=== PATIENT | female | born 2000 | race Two or more races ===

== ENCOUNTER 2020-05-19 21:49 | Emergency (ER) | payer OTHER ==
[2020-05-19] MEDS ORDERED: Sulfamethoxazole/Trimethoprim 800-160 MG Tab PO ONE (21:50)
[2020-05-19] MEDS ORDERED: Ondansetron 4 MG Tab.DIS PO ONE (21:50)
[2020-05-19] MEDS ORDERED: Sodium Chloride 0.9% 10 ML Syringe FLUSH PRN (22:14)
[2020-05-19] MEDS ORDERED: Morphine 2 MG/ML SYRINGE IVPUSH STA (22:14)
[2020-05-19] MEDS ORDERED: Ondansetron 4 MG/2 ML SDV IVPUSH STA (22:14)
[2020-05-19] MEDS ORDERED: Sodium Chloride 0.9% 1,000 ML IV SCH (22:15)
[2020-05-19] MEDS ORDERED: Ketorolac 30 MG/ML SDV IVPUSH STA (22:15)
[2020-05-19] MEDS ORDERED: Iopamidol 755 Mg/ML 100 ML Bottle IV ONE (23:22)
--- NOTE | 2020-05-19 23:24 | EDM.PDOC ---
ED HPI GENERAL MEDICAL PROBLEM - General Chief Complaint: Abdominal Pain Stated Complaint: abd pain Time Seen by Provider: 05/19/20 21:55 Source of Information: Reports: Patient, Family History Limitations: Reports: No Limitations - History of Present Illness INITIAL COMMENTS - FREE TEXT/NARRATIVE: Patient presented to the ED because of abdominal pain over the RLQ and LLQ for 3 days. The pain is sharp,5/10/ with associated nausea,vomiting. No changes in bowel movement or urinary symptoms. lower abd DICKSON Pain Score (Numeric/FACES): 6 - Related Data Allergies Allergy/AdvReac Type Severity Reaction Status Date / Time amoxicillin Allergy Hives Verified 05/19/20 22:20 Home Meds: Home Meds NK [No Known Home Meds] 05/19/20 [History] Past Medical History - Past Health History Medical/Surgical History: Denies Medical/Surgical History Social & Family History - Tobacco Use Tobacco Use Status *Q: Never Tobacco User - Recreational Drug Use Recreational Drug Use: No ED ROS GENERAL - Review of Systems Review Of Systems: See Below Constitutional: Reports: No Symptoms HEENT: Reports: No Symptoms Respiratory: Reports: No Symptoms Cardiovascular: Reports: No Symptoms Endocrine: Reports: No Symptoms GI/Abdominal: Reports: Abdominal Pain, Nausea, Vomiting Musculoskeletal: Reports: No Symptoms Skin: Reports: No Symptoms Neurological: Reports: No Symptoms Psychiatric: Reports: No Symptoms ED EXAM, GI/ABD - Physical Exam Exam: See Below Exam Limited By: No Limitations General Appearance: Alert, No Apparent Distress Ears: Normal External Exam, Normal Canal Nose: Normal Inspection, Normal Mucosa Throat/Mouth: Normal Inspection, Normal Lips, Normal Teeth Head: Atraumatic, Normocephalic Neck: Normal Inspection, Supple, Non-Tender Respiratory/Chest: No Respiratory Distress, Lungs Clear, Normal Breath Sounds, No Accessory Muscle Use, Chest Non-Tender Cardiovascular: Normal Peripheral Pulses, Regular Rate, Rhythm, No Edema, No Gallop, No JVD, No Murmur, No Rub GI/Abdominal Exam: Normal Bowel Sounds, Soft, No Organomegaly, No Distention, No Abnormal Bruit, No Mass, Other (tenderness over the suprapubia area) Back Exam: Normal Inspection, Full Range of Motion Extremities: Normal Inspection, Normal Range of Motion, Non-Tender, No Pedal Edema, Normal Capillary Refill Neurological: Alert, Oriented, Normal Cognition Course - Vital Signs Text/Narrative:: Labd/CT result was reviewed and discussed with patient NS 1 L bolus Zofran 4 mg IV x1 Morphine 2 mg IV x1 Last Recorded V/S: Last Vital Signs Temp 36.5 C 05/20/20 00:20 Pulse 80 05/20/20 00:20 Resp 16 05/20/20 00:20 BP 107/59 L 05/20/20 00:20 Pulse Ox 99 05/20/20 00:20 - Orders/Labs/Meds Orders: Active Orders 24 hr Category Date Time Status Abdomen Pelvis w Cont [CT] Stat Exams 05/19/20 23:21 Taken CULTURE URINE [RM] Stat Lab 05/19/20 22:55 Received Saline Lock Insert [OM.PC] Routine Oth 05/19/20 22:14 Ordered Labs: Laboratory Tests 05/19/20 05/19/20 05/19/20 Range/Units 22:30 22:30 22:30 WBC 11.3 H (3.0-10.3) x10-3/uL RBC 4.97 (3.60-5.20) x10(6)uL Hgb 15.2 (11.4-15.5) g/dL Hct 44.9 (34.2-48.2) % MCV 90.4 (76.7-100.5) fL MCH 30.6 (23.9-33.9) pg MCHC 33.8 (31.9-34.8) g/dL RDW 12.0 L (12.3-16.5) % Plt Count 288 (151-488) x10(3)uL MPV 7.8 (7.1-12.4) fL Neut % (Auto) 67.3 (30.8-76.2) % Lymph % (Auto) 23.9 (18.4-52.1) % [place] % (Auto) 4.2 L (4.4-15.7) % Eos % (Auto) 4.4 (0.6-8.1) % Baso % (Auto) 0.2 (0.2-1.5) % Neut # (Auto) 7.6 H (1.5-6.3) x10-3/uL Lymph # (Auto) 2.7 (1.0-4.4) x10-3/uL [place] # (Auto) 0.5 (0.3-1.0) x10-3/uL Eos # (Auto) 0.5 (0.0-0.8) x10-3/uL Baso # (Auto) 0.0 (0.0-0.1) x10-3/uL Sodium 140 (135-145) mmol/L Potassium 3.8 (3.5-5.3) mmol/L Chloride 100 (100-110) mmol/L Carbon Dioxide 26 (21-32) mmol/L BUN 11 (7-18) mg/dL Creatinine 0.9 (0.55-1.02) mg/dL Est Cr Clr Drug Dosing TNP Estimated GFR (MDRD) > 60 (>60) BUN/Creatinine Ratio 12.2 (9-20) Glucose 112 (80-116) mg/dL Calcium 9.0 (8.6-10.2) mg/dL Total Bilirubin 1.0 (0.1-1.3) mg/dL AST 15 (5-25) IU/L ALT 22 (12-36) U/L Alkaline Phosphatase 103 (56-112) IU/L Total Protein 8.2 H (6.0-8.0) g/dL Albumin 4.0 (3.5-5.2) g/dL Globulin 4.2 g/dL Albumin/Globulin Ratio 1.0 Amylase 60 (25-115) U/L Lipase 74 (73-393) U/L HCG, Quant (<5) mIU/mL Urine Color (YELLOW) Urine Appearance (CLEAR) Urine pH (5.0-6.5) Ur Specific [place] (1.010-1.025) Urine Protein (NEGATIVE) mg/dL Urine Glucose (UA) (NORMAL) mg/dL Urine Ketones (NEGATIVE) mg/dL Urine Occult Blood (NEGATIVE) Urine Nitrite (NEGATIVE) Urine Bilirubin (NEGATIVE) Urine Urobilinogen (NEGATIVE) mg/dL Ur Leukocyte Esterase (NEGATIVE) Urine RBC (0-5) Urine WBC (0-5) Ur Squamous Epith Cells (NS,R,O) Urine Bacteria (NS) 05/19/20 05/19/20 Range/Units 22:30 22:55 WBC (3.0-10.3) x10-3/uL RBC (3.60-5.20) x10(6)uL Hgb (11.4-15.5) g/dL Hct (34.2-48.2) % MCV (76.7-100.5) fL MCH (23.9-33.9) pg MCHC (31.9-34.8) g/dL RDW (12.3-16.5) % Plt Count (151-488) x10(3)uL MPV (7.1-12.4) fL Neut % (Auto) (30.8-76.2) % Lymph % (Auto) (18.4-52.1) % [place] % (Auto) (4.4-15.7) % Eos % (Auto) (0.6-8.1) % Baso % (Auto) (0.2-1.5) % Neut # (Auto) (1.5-6.3) x10-3/uL Lymph # (Auto) (1.0-4.4) x10-3/uL [place] # (Auto) (0.3-1.0) x10-3/uL Eos # (Auto) (0.0-0.8) x10-3/uL Baso # (Auto) (0.0-0.1) x10-3/uL Sodium (135-145) mmol/L Potassium (3.5-5.3) mmol/L Chloride (100-110) mmol/L Carbon Dioxide (21-32) mmol/L BUN (7-18) mg/dL Creatinine (0.55-1.02) mg/dL Est Cr Clr Drug Dosing Estimated GFR (MDRD) (>60) BUN/Creatinine Ratio (9-20) Glucose (80-116) mg/dL Calcium (8.6-10.2) mg/dL Total Bilirubin (0.1-1.3) mg/dL AST (5-25) IU/L ALT (12-36) U/L Alkaline Phosphatase (56-112) IU/L Total Protein (6.0-8.0) g/dL Albumin (3.5-5.2) g/dL Globulin g/dL Albumin/Globulin Ratio Amylase (25-115) U/L Lipase (73-393) U/L HCG, Quant < 5 L (<5) mIU/mL Urine Color Yellow (YELLOW) Urine Appearance Slightly cloudy (CLEAR) Urine pH 5.0 (5.0-6.5) Ur Specific [place] 1.025 (1.010-1.025) Urine Protein 30 H (NEGATIVE) mg/dL Urine Glucose (UA) Normal (NORMAL) mg/dL Urine Ketones 15 H (NEGATIVE) mg/dL Urine Occult Blood Negative (NEGATIVE) Urine Nitrite Negative (NEGATIVE) Urine Bilirubin Small H (NEGATIVE) Urine Urobilinogen 1 H (NEGATIVE) mg/dL Ur Leukocyte Esterase Small H (NEGATIVE) Urine RBC 5-10 H (0-5) Urine WBC 5-10 H (0-5) Ur Squamous Epith Cells Moderate H (NS,R,O) Urine Bacteria Many H (NS) Meds: Medications Discontinued Medications Generic Name Dose Route Start Last Admin Trade Name Freq PRN Reason Stop Dose Admin Sodium Chloride 1,000 mls @ 999 mls/hr 05/19/20 22:15 05/19/20 22:25 Normal Saline IV 999 mls/hr ASDIRECTED [place] Administration Iopamidol 100 ml 05/19/20 23:22 05/19/20 23:36 Iopamidol 755 Mg/Ml 100 Ml Bottle IV 05/19/20 23:23 100 ml . DIRECTED ONE Administration Ketorolac Tromethamine 30 mg 05/19/20 22:15 05/19/20 22:25 Ketorolac 30 Mg/Ml Sdv IVPUSH 05/19/20 22:16 30 mg NOW STA Administration Morphine Sulfate 2 mg 05/19/20 22:14 05/19/20 22:25 Morphine 2 Mg/Ml Syringe IVPUSH 05/19/20 22:15 2 mg NOW STA Administration Ondansetron HCl 4 mg 05/19/20 22:14 05/19/20 22:25 Ondansetron 4 Mg/2 Ml Sdv IVPUSH 05/19/20 22:15 4 mg NOW STA Administration Sodium Chloride 10 ml 05/19/20 22:14 05/19/20 22:25 Sodium Chloride 0.9% 10 Ml Syringe FLUSH 10 ml ASDIRECTED PRN Administration Keep Vein Open Departure - Departure Time of Disposition: 00:30 Disposition: Home, Self-Care 01 Condition: Good Clinical Impression: UTI (urinary tract infection), Abdominal pain, [place] - Discharge Information Instructions: Abdominal Pain, Adult, [id number], Urinary Tract Infection, Adult Referrals: Zachary Ruano MD [Primary Care Provider] - Forms: ED Department Discharge Additional Instructions: Please read discharge instructions abdominal pain and UTI Increase fluids at least 2 liters of water daily Zofran ODT 4 mg every 4 hours as needed for nausea Bactrim DS twice daily for 5 days Follow up as needed Sepsis Event Note (ED) - Evaluation Sepsis Screening Result: No Definite Risk - Focused Exam Vital Signs: Vital Signs Temp Pulse Resp BP Pulse Ox 05/20/20 00:20 36.5 C 80 16 107/59 L 99 - My Orders Last 24 Hours: My Active Orders 05/19/20 22:14 Saline Lock Insert [OM.PC] Routine 05/19/20 22:55 CULTURE URINE [RM] Stat 05/19/20 23:21 Abdomen Pelvis w Cont [CT] Stat - Assessment/Plan Last 24 Hours: My Active Orders 05/19/20 22:14 Saline Lock Insert [OM.PC] Routine 05/19/20 22:55 CULTURE URINE [RM] Stat 05/19/20 23:21 Abdomen Pelvis w Cont [CT] Stat
== END 2020-05-20 00:25 | disposition home or self-care (01) ==
LOC: FB.ED 21:49
DX: N94.0 Mittelschmerz (principal); N39.0 Urinary tract infection, site not specified; Z88.0 Allergy status to penicillin
CPT/HCPCS: 36415; 74177; 80053; 81001; 82150; 83690; 84702; 85025; 87086; 96374; 96375; 99283; 99284; A9270; J1885; J2270; J2405; J7030; Q9967